=== PATIENT | male | born 2000 | race Caucasian/White ===

== ENCOUNTER 2025-06-29 13:15 | Emergency (ER) | payer OTHER, MEDICAID, SELFPAY ==
[2025-06-29 13:17] VITALS: BP 145/94; PULSE 75; RESP 18; TEMP 36.9; O2SAT 98
--- NOTE | 2025-06-29 13:25 | ED.SKABFB ---
HPI - Skin/Abscess/Foreign Bdy General Chief complaint: Urogenital-Male Stated complaint: STD check Time Seen by Provider: 06/29/25 13:24 Source: patient Mode of arrival: ambulatory Limitations: no limitations History of Present Illness HPI narrative: 25 years old white male, homeless, walked in with the chief complaint of itching rash around the base of his penis and suprapubic area started 3-4 hours ago also some itching rash at the left side of the face. Patient reports having vaginal intercourse without protection with a woman yesterday evening. Patient denies any fever, chills, nausea, vomiting, or penile discharge Related Data Allergies Allergy/AdvReac Type Severity Reaction Status Date / Time No Known Allergies Allergy Verified 06/29/25 13:18 Review of Systems Review of Systems: All systems reviewed & are unremarkable except as noted in HPI and below Exam Narrative: General appearance: Well-developed, well-nourished Skin: Normal color, tiny pimple like lesion around hair follicles of the base of the penis and suprapubic area consistent with folliculitis, hives in the left face Head: Normocephalic, nontraumatic Eyes: Clear conjunctiva ENT: Oropharynx normal, ears normal, nose normal Neck: Supple, nontender Chest and respiratory: Airway patent, no respiratory distress, no accessory muscle use Heart: Regular rate/rhythm Abdomen: Soft, nontender, no organomegaly, quiet bowel sounds Musculoskeletal: Normal range of motion, nontender back Neurologic: Alert and oriented ?3, [employer] is normal as tested, no gross motor deficit Course Vital Signs Vital signs: Vital Signs Temperature 36.9 C 06/29/25 13:17 Pulse Rate 75 06/29/25 13:17 Respiratory Rate 18 06/29/25 13:17 Blood Pressure 145/94 H 06/29/25 13:17 Pulse Oximetry 98 06/29/25 13:17 Oxygen Delivery Room Air 06/29/25 13:17 Temperature 36.9 C 06/29/25 13:17 Pulse Rate 75 06/29/25 13:17 Respiratory Rate 18 06/29/25 13:17 Blood Pressure 145/94 H 06/29/25 13:17 Pulse Oximetry 98 06/29/25 13:17 Oxygen Delivery Room Air 06/29/25 13:17 MDM - Skin/Abscess/Foreign Bdy MDM Narrative Medical decision making narrative: patient's symptoms and duration does not match with STD Physical examination consistent with possible folliculitis of the suprapubic area, hives at the left face. discharge on dicloxacillin and prednisone . Differential Diagnosis Differential diagnosis: Likely other ( contact dermatitis, folliculitis) Critical Care Time Critical Care Time Critical Care Time: No Discharge Plan Discharge Clinical Impression: Folliculitis, Allergic reaction Patient Disposition: Home Condition: Stable Instructions: Antibiotic Form, Folliculitis (ED), General Allergic Reaction (ED) Additional Instructions: Return if symptoms are worsening , call your family physician for appointment, take Tylenol as as needed for aches and pain, continue home medications. Local health department Patient Language: Italian Prescriptions: New dicloxacillin 500 mg capsule 500 mg PO Q6H Qty: 28 0RF prednisone 20 mg tablet 40 mg PO DAILY 5 Days Qty: 10 0RF Follow-up/Referrals: Rosendo,MD Jake [Primary Care Provider] -
== END 2025-06-29 13:30 | disposition home or self-care (01) ==
LOC: CHSED 13:34
PROVIDERS: Emergency Provider Emergency Medicine; PCP Family Medicine
DX: L73.9 Follicular disorder, unspecified (principal); L50.0 Allergic urticaria
CPT/HCPCS: 99283

== ENCOUNTER 2025-10-27 06:59 | Emergency (ER) | payer MEDICAID, SELFPAY ==
[2025-10-27 06:59] VITALS: BP 141/89; PULSE 93; RESP 20; TEMP 36.4; O2SAT 100
[2025-10-27] MEDS: TETANUS,DIPHTHERIA,AC PERTUSSIS ADULT 0.5 ML (ADACEL) IM (07:07)
--- NOTE | 2025-10-27 07:16 | ED_ITS ---
HPI - Wound/Laceration General Chief Complaint: Wound/Laceration Stated Complaint: LACERATION Time Seen by Provider: 10/27/25 07:11 Source: patient Mode of arrival: ambulatory Limitations: no limitations History of Present Illness HPI narrative: Patient is a 25-year-old male with a left thumb small laceration after cutting it with a knife at work accidentally yesterday. Tetanus not up-to-date. The area still bleeding from time to time. Onset (ago): day(s) (Two) Location: other (Left thumb) Place: work Patient tetanus UTD: No Context: accidental Associated symptoms: none Treatments prior to arrival: other (None) Related Data Allergies Allergy/AdvReac Type Severity Reaction Status Date / Time No Known Allergies Allergy Verified 10/27/25 07:05 Review of Systems Review of Systems: All systems reviewed & are unremarkable except as noted in HPI and below Constitutional: Constitutional: Reports no additional constitutional complaints Eyes: Eyes: Reports no additional eye complaints ENT: Reports system reviewed and no additional complaints, except as documented Cardiovascular: Cardiovascular: Reports no additional cardiovascular complaints Respiratory: Respiratory: Reports no additional respiratory complaints Gastrointestinal: Gastrointestinal: Reports no additional gastrointestinal complaints Genitourinary: Genitourinary: Reports no additional male genitourinary complaints Musculoskeletal: Musculoskeletal: Reports no additional musculoskeletal complaints Integumentary/Breasts: Skin/Breast: Reports system reviewed and no additional complaints, except as docu Neurologic: Reports system reviewed and no additional complaints, except as documented Psychiatric: Psychiatric: Reports no additional psychiatric complaints Endocrine: Endocrine: Reports no additional endocrine complaints Hematologic/Lymphatic: Hematologic/Lymphatic: Reports no additional hematologic/lymphatic complaints Allergic/Immunologic: Allergic/Immunologic: Reports no additional allergic/immunologic complaints Exam Const: General: healthy appearing Nutritional Appearance: well nourished Orientation/consciousness: patient oriented x3 Limitations: no limitations HENMT: Head: normal to inspection Ears: external ears normal Face/Nose/Sinus: Normal external nose present Eyes: Conjunctivae: conjunctivae normal Pupils: Equal, round and reactive pupils present EOM: EOMs intact bilaterally Neck: Neck: normal visual inspection Chest: Chest palpation & inspection: normal inspection of the chest Resp: Effort & Inspection: normal respiratory effort and not labored Auscultation: clear to auscultation bilaterally and no crackles Cardio: Rate: regular rate Rhythm: regular rhythm Heart sounds: no murmurs GI: Inspection: non-distended GI Palp: Yes Soft to palpation and No Tenderness to palpation present (GI) Auscultation: normal bowel sounds Back/Spine/Pelvis: Back: no CVA tenderness Skin: General skin exam: normal color Rashes: no rashes Wounds: no wounds Neuro: General: patient oriented x3, moves all extremities and no meningeal signs Extrem: General: abnormal to inspection, no clubbing, cyanosis or edema and no pedal edema Other: Left thumb has a 0.5 cm superficial linear laceration to the lateral aspect of the nail without nail involvement; no bleeding or signs of infection at this time Psych: Mental Status: mental status grossly normal Affect: normal affect Attitude: cooperative Course Vital Signs Vital signs: Vital Signs Temperature 36.4 C 10/27/25 06:59 Pulse Rate 93 10/27/25 06:59 Respiratory Rate 20 10/27/25 06:59 Blood Pressure 141/89 H 10/27/25 06:59 Pulse Oximetry 100 10/27/25 06:59 Oxygen Delivery Room Air 10/27/25 06:59 Temperature 36.4 C 10/27/25 06:59 Pulse Rate 93 10/27/25 06:59 Respiratory Rate 20 10/27/25 06:59 Blood Pressure 141/89 H 10/27/25 06:59 Pulse Oximetry 100 10/27/25 06:59 Oxygen Delivery Room Air 10/27/25 06:59 MDM - Wound/Laceration MDM Narrative Medical decision making narrative: Patient is a 25-year-old male with a left thumb laceration done at work yesterday with a knife accidentally. Tetanus booster. Adhesive glue. Note for work. Discharge Plan Discharge Clinical Impression: Finger laceration Qualifiers: Encounter type: initial encounter Finger: thumb Damage to nail status: without damage Foreign body presence: without foreign body Laterality: left Qualified Code(s): S61.012A - Laceration without foreign body of left thumb without damage to nail, initial encounter Patient Disposition: Home Condition: Stable Instructions: Skin Adhesive Care (ED) Patient Language: [place] Irish Prescriptions: No Action dicloxacillin 500 mg capsule 500 mg PO Q6H Qty: 28 0RF prednisone 20 mg tablet 40 mg PO DAILY 5 Days Qty: 10 0RF Follow-up/Referrals: UNKNOWN,DOCTOR [Primary Care Provider] Stand Alone Forms: Work/School Release IP Time of Disposition: 07:13
== END 2025-10-27 07:15 | disposition home or self-care (01) ==
LOC: CHSED 07:22
PROVIDERS: Emergency Provider Emergency Medicine; PCP Family Medicine
DX: S61.012A Laceration without foreign body of left thumb without damage to nail, initial encounter (principal); W26.0XXA Contact with knife, initial encounter; Y99.0 Civilian activity done for income or pay; Z23 Encounter for immunization
CPT/HCPCS: 12001; 90471; 90715; 99282